=== PATIENT | female | born 1965 | race African-American/Black ===

== ENCOUNTER 2017-01-05 18:44 | Emergency (ER) | payer OTHER ==
[2017-01-05 19:13] LABS: INR 0.91 (0.9-1.2); PROTHROMBIN TIME 11.9 SECONDS (11.7-14.0)
[2017-01-05 19:14] LABS: PTT 28.7 SECONDS (23.2-31.4)
[2017-01-05 19:19] LABS: BILIRUBIN - TOTAL 0.5 mg/dL (0.1-1.0); CREATININE 0.7 mg/dL (0.5-1.0); GLOBULIN (CALCULATION) 2.9 g/dL (2.2-4.2); MAGNESIUM 1.91 mg/dL (1.40-2.10); POTASSIUM 3.4 mmol/L (3.5-5.1); TOTAL PROTEIN 7.9 g/dL (6.4-8.3)
[2017-01-05 19:21] LABS: BASOPHIL 0.4 % (0-2); EOSINOPHIL 3.1 % (0-5); HCT 35.4 % (37.0-47.0); HGB 12.1 g/dl (12.5-16.0); MCH 28.9 pg (25.0-31.0); MCHC 34.2 g/dL (32.0-36.0); MCV 84.5 fL (78.0-100.0); MONOCYTE 7.5 % (0-12); MPV 10.2 fL (6.0-9.5); PLT 342 K/uL (150-400); RBC 4.19 M/uL (4.20-5.40); RDW 13.9 % (11.5-14.0); WBC 10.8 K/uL (4.0-10.5)
[2017-01-05 19:22] LABS: CKMB 2.95 ng/mL (0.97-4.94); MYOGLOBIN 85 ng/mL (26-65); PRO-BNP 11 pg/mL (0-125); TROPONIN T < 0.010 ng/mL
== END 2017-01-05 21:53 | disposition home or self-care (01) ==
LOC: FER 18:44
PROVIDERS: Emergency Medicine
DX: R07.89 Other chest pain (principal); M25.512 Pain in left shoulder; E11.9 Type 2 diabetes mellitus without complications; I10 Essential (primary) hypertension; F41.9 Anxiety disorder, unspecified; Z79.84 Long term (current) use of oral hypoglycemic drugs; Z79.899 Other long term (current) drug therapy
CPT/HCPCS: 36415; 71010; 80053; 82550; 82553; 83735; 83874; 83880; 84484; 85025; 85379; 85610; 85730; 93005; J1885

== ENCOUNTER 2021-06-22 11:37 | Emergency (ER) | payer OTHER ==
[2021-06-22] MEDS ORDERED: VENTOLIN HFA18 GM INH (16:32)
[2021-06-22] MEDS ORDERED: TESSALON PERLE100 M1 PO (16:32)
[2021-06-22] MEDS ORDERED: ONDANSETRON ODT4 MG PO (16:32)
== END 2021-06-22 16:38 | disposition home or self-care (01) ==
LOC: FER 11:37
DX: U07.1 COVID-19 (principal); I10 Essential (primary) hypertension; E11.9 Type 2 diabetes mellitus without complications
CPT/HCPCS: M0243; Q0244; U0002